=== PATIENT | male | born 1970 | race Caucasian/White ===

== ENCOUNTER 2021-08-04 13:34 | Emergency (ER) | payer BC, SELFPAY ==
[2021-08-04 13:36] VITALS: BP 104/85; PULSE 73; RESP 15; TEMP 36.6; O2SAT 96; BMI 32.8
--- NOTE | 2021-08-04 14:25 | EKG12_ITS ---
Test Reason : Blood Pressure : / mmHG Vent. Rate : 061 BPM Atrial Rate : 061 BPM P-R Int : 160 ms QRS Dur : 086 ms QT Int : 410 ms P-R-T Axes : 043 -08 007 degrees QTc Int : 412 ms Normal sinus rhythm Normal ECG Confirmed by TRISTA DONALDSON, PRATEEK ([id number]), medical editor EKTA WAN ([id number]) on 08/06/2021 10:13:02 AM Referred By: BB Confirmed By:PRATEEK WESTON MD
[2021-08-04 14:55] VITALS: BP 119/66; BP 120/71; BP 123/67; PULSE 62; PULSE 63; PULSE 65
--- NOTE | 2021-08-04 15:25 | EX.ED.DYSGE1 ---
HPI History of Present Illness Chief Complaint: Dizziness Informant: patient Onset/Context/Timing Onset: Today Context: Gradual Onset Current Severity: Gone Maximum Severity: Severe Worsened by: after having diarrhea Relieved by: zofran given by EMS Associated Symptoms Associated Symptoms: nausea, near-syncope, brief palpitations Narrative Narrative: Patient states she was cutting down a [place] tree, states he started feeling lightheaded, suddenly then had to have a bout of diarrhea, then he felt nauseated like he was going to pass out and had a brief episode of some palpitations, he describes it more like his heart beating hard not necessarily rapidly, EMS was called, the given Zofran and by the time he arrived he was feeling back to normal as he is now. He had no chest discomfort or shortness of breath. States he has GERD, he sometimes takes Carafate which he did not do today, he had some cold brew coffee which he shortly afterwards vomited up due to the episode of symptoms. He states he has had this happen before, and it has occurred shortly before having a bowel movement as it did this time. Prior similar symptoms: [facility] Medical History (Updated 08/04/21 @ 15:[address] Dae Cyr MD) Anxiety Diabetes GERD (gastroesophageal reflux disease) Rheumatoid arthritis Home Medications atenolol 25 mg PO BID 08/04/21 [History Last Taken Unknown] buspirone [BuSpar] 5 mg PO BID 08/04/21 [History Last Taken Unknown] dapagliflozin [Farxiga] 5 mg PO DAILY 08/04/21 [History Last Taken Unknown] fluoxetine 10 mg PO DAILY 08/04/21 [History Last Taken Unknown] lisinopril 5 mg PO DAILY 08/04/21 [History Last Taken Unknown] metformin 500 mg PO BID 08/04/21 [History Last Taken Unknown] pantoprazole [Protonix] 20 mg PO DAILY 08/04/21 [History Last Taken Unknown] pravastatin 10 mg PO DAILY 08/04/21 [History Last Taken Unknown] Allergy/AdvReac Type Severity Reaction Status Date / Time No Known Allergies Allergy Verified 08/04/21 13:36 Social History Smoking Status: Never smoker ROS ROS ED Constitutional Constitutional ED: Denies chills or fever(s) Eyes Eyes: Denies change in vision or diplopia ENT ENT ED: Denies rhinorrhea or sore throat Cardiovascular Cardiovascular: Denies chest pain or palpitations Respiratory/Chest Respiratory/Chest: Denies cough or dyspnea Gastrointestinal Gastrointestinal: Reports diarrhea, nausea and vomiting; Denies abdominal pain Genitourinary Genitourinary ED: Denies dysuria or hematuria Musculoskeletal Musculoskeletal: Denies back pain or neck pain Integumentary Denies abscess or rash Neurologic Neurologic: Reports as per HPI and other Details: near-syncope ; Denies headache(s), paresthesias or weakness Psychiatric Psychiatric: Denies anxiety or suicidal thoughts EXAM Physical Exam Const Vital Signs: 08/04/21 13:36 08/04/21 13:41 08/04/21 14:55 Temperature 98 F Temperature Source Temporal Pulse Rate 73 Pulse Rate [Lying] 63 Pulse Rate [Sitting] 65 Pulse Rate [Standing] 62 Respiratory Rate 15 Respiratory Effort Normal Non-Labored Respiratory Pattern Normal Blood Pressure 104/85 H Blood Pressure [Lying] 120/71 Blood Pressure [Sitting] 123/67 H Blood Pressure [Standing] 119/66 Blood Pressure Mean 91 Blood Pressure Mean [Lying] 87 Blood Pressure Mean [Sitting] 85 Blood Pressure Mean [Standing] 83 Pulse Ox 96 Oxygen Delivery Method Room Air Positive well nourished and well developed General Appearance ED: well developed and NAD HEENT Reports moist mucous membranes normocephalic and atraumatic Eyes PERRL and EOMs intact bilaterally Neck full ROM and supple Resp normal respiratory effort and clear to auscultation bilaterally Cardio regular rate, regular rhythm and no murmurs GI non-tender and non-distended Auscultation: normoactive bowel sounds Palpation: soft Back/Spine no CVA tenderness General Back: other FROM Extremity normal to inspection General Extremety ED: Negative for edema, pulses abnormal or tenderness General Extremity: Negative for edema or pulses abnormal Neuro oriented x3, CN's II-XII intact bilaterally and no sensory deficits noted Sensorium / Orientation: awake and alert Motor Exam: strength 5/5 throughout Skin no rashes or lesions noted and no wounds MDM MDM MDM Narrative Medical decision making narrative: Orthostatics performed which were normal, and he was asymptomatic with them. EKG is normal. This is all consistent with a vasovagal episode likely triggered by bowel discomfort prior to having diarrhea. He states he has had this happen in the past. He has had no recent illness, he states he has had EKGs multiple times for this and they were always normal. I discussed vasovagal sensitivity with him, he wants to prevent it, for now I said to him that he will just need to sit or lie down when he feels symptoms coming on so that he does not pass out he is comfortable with that plan and following up. EKG Initial EKG: Attestation: I personally reviewed and interpreted this EKG as follows: Interpretation: Sinus Rhythm and No Acute Injury Pattern Comments: Normal EKG, heart rate 61 Discharge Plan Triage Chief Complaint: Dizziness Other Complaint: Diarrhea Nausea/Vomiting ED Provider: Dae Cyr Dx/Rx/DC Orders Clinical Impression: Vasovagal near syncope Instructions: ED Near-Fainting- Vagal Reaction Prescriptions: No Action buspirone [BuSpar] 5 mg Tablet 5 mg PO BID RF: 0 metformin 500 mg Tablet 500 mg PO BID RF: 0 atenolol 25 mg Tablet 25 mg PO BID RF: 0 pantoprazole [Protonix] 20 mg Tablet,Delayed Release (Dr/Ec) 20 mg PO DAILY RF: 0 pravastatin 10 mg Tablet 10 mg PO DAILY RF: 0 fluoxetine 10 mg Capsule 10 mg PO DAILY RF: 0 lisinopril 5 mg Tablet 5 mg PO DAILY RF: 0 Farxiga 5 mg Tablet 5 mg PO DAILY RF: 0 Referrals: Savage Conn [Other] - As Needed Disposition Disposition: Home, Self Care Discharge Date/Time: 08/04/21 15:32
== END 2021-08-04 15:32 | disposition home or self-care (01) ==
PROVIDERS: Emergency Provider Emergency Medicine
DX: R55 Syncope and collapse (principal); K21.9 Gastro-esophageal reflux disease without esophagitis; E11.9 Type 2 diabetes mellitus without complications; F41.9 Anxiety disorder, unspecified; M06.9 Rheumatoid arthritis, unspecified; Z79.84 Long term (current) use of oral hypoglycemic drugs; Z79.899 Other long term (current) drug therapy
CPT/HCPCS: 93005; 99285